=== PATIENT | male | born 1995 | race Hispanic/Latino ===

== ENCOUNTER 2017-01-18 01:48 | Emergency (ER) | payer MEDICAID ==
[2017-01-18 02:08] VITALS: BMI 38.0
[2017-01-18 02:12] VITALS: BP 0/0; PULSE 0; RESP 0; O2SAT 0
--- NOTE | 2017-01-18 02:26 | C.PDOC ---
History Of Present Illness Pt was seen immediately upon arrival. Pt was traveling in a car with his parents. They stated that he started vomiting and became unresponsive. Upon EMS arrival he was found to be in asystole. He remained in asystole despite CPR and ACLS meds. Time Seen by Provider: 01/18/17 02:04 Chief Complaint (Nursing): Cardiac Arrest History Per: EMS, Family Reason For Code Blue: Full Arrest Circumstances: Brought To ED By EMS Arrest Witnessed By: Family CPR Initiated Prior To MD Arrival?: Yes Down-Time Before ACLS: Unknown Treatment Initiated Prior To MD Arrival: Yes: CPR, BVM Ventilations, Intubation (Silvano tube), ACLS Medication Initiation, Other (IO Access) Medications Given Prior To MD Arrival: Yes: Epinephrine - Initial Findings Mentation: Unresponsive Respirations: None (Assisted) Pulse: None Rhythm: Asystole Past Medical History Reviewed: Historical Data, Nursing Documentation, Vital Signs Vital Signs: Last Vital Signs Temp Pulse 0 L 01/18/17 02:00 Resp 0 L 01/18/17 02:00 BP 0/0 L 01/18/17 02:00 Pulse Ox 0 L 01/18/17 02:00 - Medical History Other PMH: Cerebral palsy Other Surgeries: CAR VARNISHER shunt Family History: States: Unknown Family Hx - Social History Hx Alcohol Use: No Hx Substance Use: No - Immunization History Hx Tetanus Toxoid Vaccination: No Hx Influenza Vaccination: No Hx Pneumococcal Vaccination: No Review Of Systems Review Of Systems: ROS cannot be obtained secondary to pt's inabilty to answer questions. Physical Exam - Physical Exam Appears: Other (Unresponsive) Skin: Dry Head: Atraumatic Eye(s): bilateral: Other (Fixed and dilated) Oral Mucosa: Other (Silvano tube in place) Neck: No Step Off Deformity Chest: Symmetrical Cardiovascular: Other (No heart sounds) Respiratory: Other (equal breath sounds with bagging) Gastrointestinal/Abdominal: Soft Extremity: Other (IO in right leg) Neurological/Psych: No Response To Commands Pain Response: No Response To Pain ED Course And Treatment O2 Sat by Pulse Oximetry: 0 - CT Scan/US Limited bedside Cardiac ultrasound Other Rad Studies (CT/US): U/S Performed By Nc CT/US Interpretation: No cardiac activity. Progress Note: Pt remained pulseless and in asystole in the ED. Pt was d/w the medical malpractice paralegal who will take the case. Disposition - Disposition Disposition: WITH WITHOUT AUTOPSY Disposition Time: 01:55 Condition: - Clinical Impression Clinical Impression: Cardiac arrest, Cardiac asystole Critical Care Time - Critical Care Note Total Time (in mins): 30 Documented critical care: time excludes all time spent performing seperately billable procedures.
== END 2017-01-18 03:49 ==
LOC: C.ER 01:48
DX: I46.9 Cardiac arrest, cause unspecified (principal)
CPT/HCPCS: 92950; 99281; J0171